=== PATIENT | female | born 1965 | race Caucasian/White ===

== ENCOUNTER 2018-07-16 20:10 | Emergency (ER) | payer SELFPAY ==
--- NOTE | 2018-07-16 21:34 | RAD ---
RADIOGRAPH LEFT FOOT 3 VIEWS: 07/16/18 HISTORY: 52-year-old female with posttraumatic pain and swelling of the foot. FINDINGS: No dislocation. No fracture is identified. IMPRESSION: Negative. POS: [facility]
== END 2018-07-16 21:47 | disposition home or self-care (01) ==
LOC: ERS 20:10
DX: M79.672 Pain in left foot (principal); I10 Essential (primary) hypertension; Z79.899 Other long term (current) drug therapy